=== PATIENT | male | born 1980 | race Caucasian/White ===

== ENCOUNTER 2023-10-17 17:44 | Inpatient (IN) | payer BC, SELFPAY ==
[2023-10-17 13:37] VITALS: BP 174/99
[2023-10-17 14:32] LABS: % Basophils 0.4 % (0-2); % Eosinophils 0.6 % (0-6); % Immature Granulocytes 0.5 % (0-0.5); % Monocytes 6.7 % (1.7-9.3); % Neutrophils 78.8 % (42.2-75.2); Absolute Basophils 0.1 10^3/uL (0-0.2); Absolute Eosinophils 0.1 10^3/uL (0-0.7); Absolute Immature Granulocytes 0.1 10^3/uL (0-0.05); Absolute Lymphocytes 2.2 10^3/uL (1.2-3.4); Absolute Monocytes 1.1 10^3/uL (0.1-0.6); Absolute Neutrophils 13.4 10^3/uL (1.4-6.5); Hematocrit 41.2 % (39.0-52.0); Hemoglobin 14.2 g/dL (13.0-18.0); Mean Corp Hgb Conc. 34.5 g/dL (33.0-37.0); Mean Corpuscular Hgb 29.3 pg (27.0-31.0); Mean Corpuscular Volume 84.9 fL (80.0-94.0); Nucleated Red Blood Cells % 0 % (-); Platelet Count 360 10^3/uL (130-400); Red Blood Cell Count 4.85 10^6/uL (4.70-6.10); Red Cell Dist. Width 13.5 % (11.5-14.5); White Blood Cell Count 16.9 10^3/uL (4.8-10.8)
[2023-10-17 14:46] LABS: ALT (SGPT) 23 U/L (0-50); AST (SGOT) 22 U/L (17-59); Albumin 4.6 g/dl (3.5-5.0); Alkaline Phosphatase 77 U/L (38-126); Blood Urea Nitrogen 14 mg/dl (9-20); Calcium 9.3 mg/dl (8.4-10.2); Carbon Dioxide 23 mmol/L (22-30); Chloride 104 mmol/L (98-107); Glucose 98 mg/dl (70-99); Potassium 3.8 mmol/L (3.5-5.1); Sodium 135 mmol/L (135-145); Total Bilirubin 0.8 mg/dl (0.2-1.3); Total Protein 7.2 g/dl (6.3-8.2); eGFR > 60.00
--- NOTE | 2023-10-17 15:20 | ED.GENMED ---
History of Present Illness
<Melodie Rice MD - Last Filed: 10/17/23 15:32>
General
Chief Complaint: Abdominal Pain
Time Seen by Provider: 10/17/23 13:50
Travel History
Have you had any contact with someone who has COVID-19?: No
Do you have any symptoms of coronavirus? Fever > 100 degrees, chills, cough, shortness of breath, sore throat, loss of taste or smell, muscle aches, or headache?: No
<Elian Potter PA-C - Last Filed: 10/17/23 16:44>
History of Present Illness
History of Present Illness:
43-year-old male with history of hypertension and obesity presents emergency department for evaluation of suprapubic pain over the past several days. He also notes abnormal bowel movements from the color and caliber standpoint. Denies any
associated fevers or chills. Over the past several days has had generally poor appetite. No history abdominal surgeries. Has neglected to have this evaluated earlier today without lesion. Seeing a neurosurgical specialist.. He has no history of
intra-abdominal problems such as diverticulitis.
Past History
<Melodie Rice MD - Last Filed: 10/17/23 15:32>
Past History
ED Past Medical History: COPD, HTN and Other (morbid obesity)
ED Past Surgical History: Orthopedic and Urological
Social History
Tobacco: Smoker
<Elian Potter PA-C - Last Filed: 10/17/23 16:44>
Review of Systems
Allergies reviewed?: Yes
All Other Systems: ROS reviewed and negative except as documented in HPI and ROS
<Elian Potter PA-C - Last Filed: 10/17/23 16:44>
Physical Exam
Physical Exam:
GEN: Well appearing, NAD, WDWN
HEENT: Oral mucosa moist, no scleral icterus
Cardiac: Mildly tachycardic, regular
Lung: No respiratory distress, no tachypnea
Abdomen: Obesity limits exam, no rigidity, tenderness in suprapubic region, no peritoneal signs
MSK: No gross deformity or injuries
Skin: Good color, no pallor or jaundice, no rashes
Neuro: AO x3, moves all extremities freely
Psych: Calm, cooperative
Course
<Melodie Rice MD - Last Filed: 10/17/23 15:32>
Orders/Labs/Results
Orders:
Orders
10/17/23 14:06
CT Abd/Pel (IV only)-[facility] only Urgent
Comment:
Reason For Exam: suprapubic pain
10/17/23 14:11
Complete Blood Count/With Diff Urgent
Comprehensive Metabolic Panel Urgent
10/17/23 16:21
Zosyn 3.375 grams IVPB NOW Piperacillin/Tazo 3.375 Gram [Zosyn] 3.375 gram in 50 ml IV NOW
10/17/23 16:22
Lactated Ringers [Lr] 1,000 ml IV 250 mls/hr
Abnormal Lab Results
10/17/23
14:11
WBC 16.9 H 10^3/uL
(4.8-10.8)
Abs Immat Gran (auto) 0.1 H 10^3/uL
(0-0.05)
Absolute Neuts (auto) 13.4 H 10^3/uL
(1.4-6.5)
Absolute Monos (auto) 1.1 H 10^3/uL
(0.1-0.6)
Neutrophils % 78.8 H %
(42.2-75.2)
Lymphocytes % 13.0 L %
(20.5-51.1)
10/17/23 14:11
10/17/23 14:11
Vital Signs
Initial and Last Documented VS:
Initial Vital Signs
Temp Pulse Resp BP Pulse Ox
98.5 F 102 16 174/99 97
10/17/23 13:37 10/17/23 13:37 10/17/23 13:37 10/17/23 13:37 10/17/23 13:37
Last Documented Vital Signs
Temp Pulse Resp BP Pulse Ox
98.5 F 92 16 146/92 99
10/17/23 13:37 10/17/23 15:52 10/17/23 15:52 10/17/23 15:52 10/17/23 15:52
<Elian Potter PA-C - Last Filed: 10/17/23 16:44>
Orders/Labs/Results
Orders:
Orders
10/17/23 14:06
CT Abd/Pel (IV only)-[facility] only Urgent
Comment:
Reason For Exam: suprapubic pain
10/17/23 14:11
Complete Blood Count/With Diff Urgent
Comprehensive Metabolic Panel Urgent
10/17/23 16:21
Zosyn 3.375 grams IVPB NOW Piperacillin/Tazo 3.375 Gram [Zosyn] 3.375 gram in 50 ml IV NOW
10/17/23 16:22
Lactated Ringers [Lr] 1,000 ml IV 250 mls/hr
Abnormal Lab Results
10/17/23
14:11
WBC 16.9 H 10^3/uL
(4.8-10.8)
Abs Immat Gran (auto) 0.1 H 10^3/uL
(0-0.05)
Absolute Neuts (auto) 13.4 H 10^3/uL
(1.4-6.5)
Absolute Monos (auto) 1.1 H 10^3/uL
(0.1-0.6)
Neutrophils % 78.8 H %
(42.2-75.2)
Lymphocytes % 13.0 L %
(20.5-51.1)
10/17/23 14:11
10/17/23 14:11
Vital Signs
Initial and Last Documented VS:
Initial Vital Signs
Temp Pulse Resp BP Pulse Ox
98.5 F 102 16 174/99 97
10/17/23 13:37 10/17/23 13:37 10/17/23 13:37 10/17/23 13:37 10/17/23 13:37
Last Documented Vital Signs
Temp Pulse Resp BP Pulse Ox
98.5 F 92 16 146/92 99
10/17/23 13:37 10/17/23 15:52 10/17/23 15:52 10/17/23 15:52 10/17/23 15:52
<Elian Potter PA-C - Last Filed: 10/17/23 16:44>
MDM/Problems Addressed
MDM/Problems Addressed:
CT shows diverticulitis with early abscess development in the sigmoid. Will admit the patient for IV antibiotics
<Elian Potter PA-C - Last Filed: 10/17/23 16:44>
*Critical Care Note
Total Time (30-74mins, 75-104mins- exclusive of procedures): Not Applicable
ED Attending Note
<Melodie Rice MD - Last Filed: 10/17/23 15:32>
ED Attending Note
Patient seen and examined by attending physician: Yes
I performed the substantive portion of visit, reviewed & personally made and approve the management plan that is documented in note by myself or ELIAS.: Yes
ED Attending Note:
43 yr old male with c/o abd pain for at least a week, comes and goes, progressively worse especially today, localized to mid abd/llq area. No n/v/f/c/cp/sob. Notes stoolslook different in shape and also yellowish, no black stool or blood. On exam,
pt awake well appearing in nad. Abd soft, distinct ttp at llq and suprapubic area, no r/g. Suspect diverticulitis vs hernia vs appy etc. CT pending.
-
Portions of this chart may have been created with voice recognition software.� Occasional wrong word or��sound alike� substitutions may have occurred due to the inherent limitations of voice recognition software.
Discharge Plan
Departure
Patient Disposition: Admit
Date of Disposition: 10/17/23
Time of Disposition: 16:41
Admit to: Med/Surg
Presentation/result/management discussed w/ accepting MD/DO: Hospitalist
Discharge Problem:
Diverticulitis of intestine with abscess
Prescriptions:
No Action
prednisone 10 mg Tablet
See Rx Instructions .ROUTE .COMPLEX Qty: 30 0RF
Rx Instructions:
Take By Mouth:
40 mg daily x3 days, 30 mg daily x3 days,
20 mg daily x3 days, 10 mg daily x3 days.
ipratropium-albuterol 0.5 mg-3 mg(2.5 mg base)/3 mL solution for nebulization
3 ml inhalation QID Qty: 180 0RF
Referrals:
Rigo Cid DO [Family Provider] -
Interventions
Interventions:
*Risk Screen - Suicide Last Done: 10/17/23 14:05
*General Assessment Last Done: 10/17/23 13:37
*Neglect/Abuse Screening Last Done: 10/17/23 14:05
*ED COVID-19 Vaccine History Last Done: 10/17/23 13:37
FD-Zsxaar-Wkkfeyzzbv Assessment Last Done: 10/17/23 14:05
[2023-10-17 15:52] VITALS: BP 146/92
[2023-10-17] MEDS: LR 1000 IV (16:53)
[2023-10-17] MEDS: ZOSYN 50 IV ×2 (17:02→23:32)
--- NOTE | 2023-10-17 17:35 | HPS.HSE ---
Addendum entered and electronically signed by Dhaval Marie DO 10/17/23 17:53:
Patient seen and examined and discussed with LUZ Clark, and I agree with her note.,
Gen-AAOx3, NAD, morbid obesity
HEENT-NC, AT, anicteric, clear oral mm
Neck-supple
CV-reg, no M, +S1/S2
Lungs-clear B/L
Abd-soft, NT, ND
Ext-no edema
Musculoskeletal-no cyanosis, clubbing
Skin-warm and dry
Neuro-grossly non-focal
Psych-calm, cooperative
Sepsis due to acute sigmoid diverticulitis -CT notes early abscess formation. Leukocytosis and tachycardia noted. Clinically looks nontoxic. Admit to MedSurg, continue IV fluids and IV antibiotics. Consult colorectal surgery. NPO. Analgesics.
Discussed importance of lifestyle changes including weight loss, diet, exercise, etc. Close outpatient follow-up.
Incidental left adrenal mass -2.[address] scan. Likely adrenal adenoma. No signs or symptoms of hyperfunctioning. Will refer to endocrinology after discharge.
History of colon polyp/anal fissure -had colonoscopy about 12 years ago. Reportedly benign polyp.
Essential hypertension -he is on hydrochlorothiazide and losartan as an outpatient. Will resume.
Morbid obesity due to excess calories
Full code
Original Note:
Family Physician
-
Family Physician: Rigo Cid
Chief Complaint
-
Abdominal Pain
History of Present Illness
Patient is a 43 year old male with PMH of hypertension and obesity who presented to the ED complaining of abdominal pain and loose stool x 7 days. Patient says he has had mrxl-bt-ydakw stool that appears brown/yellow in color. He has also noticed
mucus in the toilet after bowel movements. He says his bowel habits are very regular at baseline. Patient admits to mild abdominal pain for 6 days but has become much worse over the past 24 hours. He admits to episodes of more mild but similar
abdominal pain in the past. He had a colonoscopy at age 31 for rectal bleeding which revealed a fissure and benign polyp. He denies fever, chills, sweats, and bloody or dark stool. He denies prior diverticulitis diagnosis.
Medical History
Past Medical History
Past Medical History: Reports Other
Additional Past Medical History:
Essential Hypertension
Past Surgical History: Reports Other
Additional Past Surgical History:
Left Rotator Cuff
Social History
Tobacco: Smoker (07/29 ppd)
Personal:
Living: With Family
Family History
Family History: Not pertinent
Allergies / Home Medications
Allergies reflects when Allergies were last updated in [facility] (formerly known as [facility]).
Home Medications with original date entered in [facility] (formerly known [facility])
Allergy/Medication List:
Allergies
Allergy/AdvReac Type Severity Reaction Status Date / Time
No Known Allergies Allergy Verified 10/17/23 13:40
Home Medications
ascorbic acid (vitamin C) 500 mg tablet (Vitamin C) 1,000 mg PO DAILY 10/17/23
hydrochlorothiazide 25 mg tablet 25 mg PO DAILY 10/17/23
lactobacillus combination no.4 3 billion cell capsule (Probiotic) 3,000 mmu cells PO DAILY 10/17/23
losartan 50 mg tablet 100 mg PO DAILY 10/17/23
multivitamin 1 tab PO DAILY 10/17/23
Review of Systems
-
A 12 point ROS was completed and negative except as noted: Yes
Constitutional: Denies Fever or Chills
Respiratory: Denies Cough or Trouble Breathing
Cardiac: Denies Chest Pain or Palpitations
Abdomen/GI: Reports See HPI
Physical Exam
Vital Signs
Vital Signs
Temp Pulse Resp BP Pulse Ox
98.5 F 92 16 146/92 99
10/17/23 13:37 10/17/23 15:52 10/17/23 15:52 10/17/23 15:52 10/17/23 15:52
Physical Exam
General: Comfortable and Conversant
HEENT: Anicteric and Moist mucous membranes
Respiratory: Clear and Non Labored Respirations
Cardiac: S1/S2 and Regular Rhythm
GI: Soft, Normal Bowel Sounds, Tender (LLQ with slight involuntary guarding) and Other (Protuberant)
Rectal: Deferred by Provider
Musculoskeletal: No Clubbing, No Cyanosis and No Edema
Skin: Warm and Dry
Neuro: Awake, Alert, Oriented and Nonfocal/grossly intact
Psych: Calm
Laboratory Results
-
10/17/23 14:11
10/17/23 14:11
Laboratory Results
Total Bilirubin 0.8 mg/dl (0.2-1.3) 10/17/23 14:11
AST 22 U/L (17-59) 10/17/23 14:11
ALT 23 U/L (0-50) 10/17/23 14:11
Alkaline Phosphatase 77 U/L (38-126) 10/17/23 14:11
Data Reviewed
-
CT Scan: Report Reviewed by me
Lab Data: Labs Reviewed by me
Impression/Plan
-
Acute Diverticulitis with Phlegmon
-Consult Colorectal Surgery
-Continue Zosyn
-Continue NPO/IVFs
2.6cm Left Adrenal Mass
-Patient will need follow-up with Endocrine as outpatient
Essential Hypertension
-Hold HCTZ
-Continue losartan
Tobacco Use Disorder
-Encourage smoking cessation
-Offered nicotine patch which patient declined
DVT proph: Lovenox
Code Status: Full Code
[2023-10-17 18:32] VITALS: BP 147/87
[2023-10-17 18:35] VITALS: BMI 45.6
[2023-10-17 18:58] VITALS: BP 165/96
[2023-10-17] MEDS: D5/0.45%NSS with KCL 10 MEQ 1000 IV (20:37)
[2023-10-17] MEDS: ZOFRAN 4 MG IV (23:31)
[2023-10-17 23:52] VITALS: BP 118/56
[2023-10-18] MEDS: ZOSYN 50 IV ×4 (05:37→23:44)
[2023-10-18] MEDS: D5/0.45%NSS with KCL 10 MEQ 1000 IV ×2 (05:41→18:30)
[2023-10-18 06:29] LABS: Hematocrit 41.4 % (39.0-52.0); Hemoglobin 13.7 g/dL (13.0-18.0); Mean Corp Hgb Conc. 33.1 g/dL (33.0-37.0); Mean Corpuscular Hgb 29.3 pg (27.0-31.0); Mean Corpuscular Volume 88.5 fL (80.0-94.0); Mean Platelet Volume 10.2 fL (7.4-10.4); Platelet Count 339 10^3/uL (130-400); Red Blood Cell Count 4.68 10^6/uL (4.70-6.10); Red Cell Dist. Width 13.6 % (11.5-14.5); White Blood Cell Count 13.6 10^3/uL (4.8-10.8)
[2023-10-18 06:54] LABS: Blood Urea Nitrogen 12 mg/dl (9-20); Calcium 8.8 mg/dl (8.4-10.2); Carbon Dioxide 25 mmol/L (22-30); Chloride 106 mmol/L (98-107); Estimated Creatinine Clearance > 125 ml/min; Glucose 127 mg/dl (70-99); Magnesium 2.1 mg/dl (1.6-2.3); Potassium 4.2 mmol/L (3.5-5.1); Sodium 135 mmol/L (135-145); eGFR > 60.00
[2023-10-18 07:35] VITALS: BP 140/86
[2023-10-18] MEDS: COZAAR 100 MG PO (08:32)
--- NOTE | 2023-10-18 10:12 | W.PN.HOSP.TC ---
Addendum entered and electronically signed by Sav Colon MD 10/19/23 11:13:
My addendum below is entered in error to the wrong note.
Addendum entered and electronically signed by Sav Colon MD 10/18/23 16:45:
I saw and examined the patient.
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
Comment:
I personally reviewed his medical record and imaging studies.� He is admitted with his first episode of sigmoid diverticulitis; the inflammation is associated with a 4.7 cm pericolic abscess that is not amenable to percutaneous drainage due to its
central location.� There is no free air or obstruction.� There is an incidental 2.6 cm left adrenal gland mass.� He is afebrile with normal vital signs and is in no acute distress.� His abdomen is minimally tender in the suprapubic region.� His
white count was 16.9 yesterday and 13.6 today.
I reviewed the current findings with the patient and his and discussed the treatment options with the risks and benefits of each.� Surgery at this time would most likely involve a temporary colostomy.� I do not feel there is an indication for
surgery at this moment and they are in agreement with a trial of nonoperative treatment.� Continue antibiotics and he is okay for clear liquids.� Will monitor his vital signs, white count and physical findings and as long as he continues to improve,
he can be transitioned to oral antibiotics and discharged home hopefully in a couple days. �If his condition worsens, I will consider another CT scan and possible surgery.� Assuming he does improve, an outpatient CT scan will be obtained as well as
a colonoscopy.� We also discussed the possibility of an elective resection in the future. All questions answered.
Original Note:
Today's Communication/Plan
-
Continue antibiotics
Continue IV fluids
Colorectal consult
Assessment / Plan
Assessment / Plan
Gen-AAOx3, NAD, morbid obesity
HEENT-NC, AT, anicteric, clear oral mm
Neck-supple
CV-reg, no M, +S1/S2
Lungs-clear B/L
Abd-soft, nondistended, mild left lower quadrant tenderness
Ext-no edema
Musculoskeletal-no cyanosis, clubbing
Skin-warm and dry
Neuro-grossly non-focal
Psych-calm, cooperative
Sepsis due to acute sigmoid diverticulitis -CT notes early abscess formation.� Leukocytosis improving. Afebrile. Continue IV antibiotics. Awaiting colorectal surgery input. Currently NPO.
Discussed importance of lifestyle changes including weight loss, diet, exercise, etc.� Close outpatient follow-up.
Incidental left adrenal mass -2.[address] scan.� Likely adrenal adenoma.� No signs or symptoms of hyperfunctioning.� Will refer to endocrinology after discharge. Extensively discussed with patient and at the bedside.
History of colon polyp/anal fissure -had colonoscopy about 12 years ago.� Reportedly benign polyp.
Essential hypertension -he is on hydrochlorothiazide and losartan as an outpatient.� Will resume.
Morbid obesity due to excess calories
Full code
Anticipated Discharge: 24 - 48 hours
Subjective/Interval History
-
Date of Service: October 18, 2023
Patient seen and examined. Feeling better. Denies significant pain. at the bedside.
Objective Data
-
Labs:
Laboratory Results
10/18/23
05:43
WBC 13.6 H
Hgb 13.7
Hct 41.4
Plt Count 339
Sodium 135
Potassium 4.2
Chloride 106
Carbon Dioxide 25
BUN 12
Creatinine 0.7
Glucose 127 H
Calcium 8.8
Vital Signs:
Vital Signs
Temp Pulse Resp BP Pulse Ox
97.9 F 73 18 140/86 98
10/18/23 07:35 10/18/23 07:35 10/18/23 07:35 10/18/23 07:35 10/18/23 07:35
Review of Systems
-
History Source: Patient
All other systems: Reviewed and negative
[2023-10-18] MEDS: FLUSH (NSS) 2 FLUSH IV (11:59)
--- NOTE | 2023-10-18 13:14 | CON.CRS ---
Consultation
-
Date/Time Consultation Requested: 10/18/231835
Requesting Provider: Manuel
Performing Provider: Reuben Colon
Medical History
-
Chief Complaint: Abdominal pain
History of Present Illness:
This is a 43 yo male with a h/o HTN who had a colonoscopy about 12 years ago at [facility] for blood noted in stools with polyp and anal fissure noted at that time who presents for lower suprapubic abdominal pain for the past 7-8 stool with looser
stools and poor appetite. He has had some intermittent nausea but currently denies nausea. He denies fevers or chills. On exam, he has minimal suprapubic tenderness without rebound or guarding.
Past Medical History
Past Medical History: HTN
Past Surgical History: Orthopedic (left rotator cuff)
Social History
Tobacco: Smoker (/2 ppd)
Personal:
Living: With Family
Family History
Family History: Reviewed & Not Pertinent
Allergies / Home Medications
Allergy/AdvReac Type Severity Reaction Status Date / Time
No Known Allergies Allergy Verified 10/17/23 13:40
Medication Instructions Recorded Confirmed Type
ascorbic acid (vitamin C) 500 mg 1,000 mg PO DAILY Supplement 10/17/23 10/17/23 History
tablet (Vitamin C)
hydrochlorothiazide 25 mg tablet 25 mg PO DAILY Fluid 10/17/23 10/17/23 History
Retention/Swelling
lactobacillus combination no.4 3 3,000 mmu cells PO DAILY Supplement 10/17/23 10/17/23 History
billion cell capsule (Probiotic)
losartan 50 mg tablet 100 mg PO DAILY Blood Pressure 10/17/23 10/17/23 History
multivitamin 1 tab PO DAILY Supplement 10/17/23 10/17/23 History
Review of Systems
-
History Source: Patient and Family
All other systems: Negative unless noted
A 10 point review of systems was completed, and was negative except as per HPI.
Physical Exam
Vital Signs
Temp 97.9 F 10/18/23 07:35
Pulse 73 10/18/23 07:35
Resp Rate 18 10/18/23 07:35
Blood pressure 140/86 10/18/23 07:35
SaO2 98 10/18/23 07:35
10/17/23 10/18/23 10/19/23
06:59 06:59 06:59
Actual Weight 135.896 kg
Body Mass Index (BMI) 45.6
Lab Results / Allergies
10/18/23 05:43
10/18/23 05:43
WBC 13.6 10^3/uL (4.8-10.8) H 10/18/23 05:43
Hgb 13.7 g/dL (13.0-18.0) 10/18/23 05:43
Hct 41.4 % (39.0-52.0) 10/18/23 05:43
Plt Count 339 10^3/uL (130-400) 10/18/23 05:43
Abs Immat Gran (auto) 0.1 10^3/uL (0-0.05) H 10/17/23 14:11
Neutrophils % 78.8 % (42.2-75.2) H 10/17/23 14:11
Allergy/AdvReac Type Severity Reaction Status Date / Time
No Known Allergies Allergy Verified 10/17/23 13:40
Physical Exam
General: Well Developed, Well Nourished and No Apparent Distress
HEENT: Moist Mucous Membranes
Respiratory: Non Labored Respirations
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
Skin: Warm
Neuro: Awake, Alert and AO x 3
Psych: Calm
Data Reviewed
-
CT Scan: Image Personally Visualized and interpreted, Report Reviewed by me, Discussed with Physician, Discussed with Patient and Discussed with Family
Labs: Labs Reviewed by me, Discussed with Physician, Discussed with Patient and Discussed with Family
Assessment / Plan
-
43 yo male with h/o HTN presenting with 7-8 days of lower abdominal pain. CT imaging reviewed and consistent with complicated sigmoid diverticulitis with developing pelvic abscess near the bladder (4.7 cm x 3.2 cm x 2.9 cm). Leukocytosis present on
admission but trending down. AFVSS. Minimal pain. Poor appetite but without n/v.
Incidental finding of left adrenal mass, would recommend OP work up which was discussed with patient.
Discussed case with IR, Dr. Vázquez, abscess not amenable to IR drainage given location. Patient stable and improving on ABX. No plan for emergent surgery today. Will follow labs/exams closely on IV abx.
--Continue IV abx
--Follow labs/exams
--Clear liquid diet
--Analgesics/Antiemetics prn
--Medical care as per primary team
--- NOTE | 2023-10-18 13:45 | CM ---
Patient seen bedside with Victorina, initial assessment completed. Patient reports he resides with his and seven children in a four story home, two steps to enter. Patient denies DME, VN, or SNF. Patient confirms PCP Dr. Rigo Cid but
is looking into switching PCP's. Patient confirms pharmacy used is [facility]. CM will continue to follow for discharge planning needs.
Plan; home no needs anticipated.
[2023-10-18 15:35] VITALS: BP 150/87
[2023-10-18 23:08] VITALS: BP 123/62
[2023-10-19] MEDS: D5/0.45%NSS with KCL 10 MEQ IV (02:49)
[2023-10-19] MEDS: ZOSYN 50 IV (05:34)
[2023-10-19 07:10] VITALS: BP 134/84
[2023-10-19 07:52] LABS: % Basophils 0.6 % (0-2); % Eosinophils 1.4 % (0-6); % Immature Granulocytes 0.3 % (0-0.5); % Lymphocytes 18.3 % (20.5-51.1); % Monocytes 5.9 % (1.7-9.3); % Neutrophils 73.5 % (42.2-75.2); Absolute Basophils 0.1 10^3/uL (0-0.2); Absolute Eosinophils 0.2 10^3/uL (0-0.7); Absolute Lymphocytes 2.1 10^3/uL (1.2-3.4); Absolute Monocytes 0.7 10^3/uL (0.1-0.6); Absolute Neutrophils 8.5 10^3/uL (1.4-6.5); Hematocrit 42.3 % (39.0-52.0); Hemoglobin 13.6 g/dL (13.0-18.0); Mean Corp Hgb Conc. 32.2 g/dL (33.0-37.0); Mean Corpuscular Hgb 28.5 pg (27.0-31.0); Mean Corpuscular Volume 88.5 fL (80.0-94.0); Mean Platelet Volume 10.1 fL (7.4-10.4); Nucleated Red Blood Cells % 0 % (-); Platelet Count 361 10^3/uL (130-400); Red Blood Cell Count 4.78 10^6/uL (4.70-6.10); Red Cell Dist. Width 13.4 % (11.5-14.5); White Blood Cell Count 11.6 10^3/uL (4.8-10.8)
[2023-10-19] MEDS: COZAAR 100 MG PO (08:17)
--- NOTE | 2023-10-19 09:12 | W.PN.HOSP.TC ---
Today's Communication/Plan
-
Advance diet
Possible discharge
Assessment / Plan
Assessment / Plan
Gen-AAOx3, NAD, morbid obesity
HEENT-NC, AT, anicteric, clear oral mm
Neck-supple
CV-reg, no M, +S1/S2
Lungs-clear B/L
Abd-soft, nondistended, mild left lower quadrant tenderness
Ext-no edema
Musculoskeletal-no cyanosis, clubbing
Skin-warm and dry
Neuro-grossly non-focal
Psych-calm, cooperative
Sepsis due to acute sigmoid diverticulitis -CT notes early abscess formation.� Leukocytosis improving. Afebrile. Continue antibiotics. Advance diet to low residue. Can discharge later today if okay with surgery.
Discussed importance of lifestyle changes including weight loss, diet, exercise, etc.� Close outpatient follow-up.
Incidental left adrenal mass -2.[address] scan.� Likely adrenal adenoma.� No signs or symptoms of hyperfunctioning.� Will refer to endocrinology after discharge. Extensively discussed with patient and at the bedside.
History of colon polyp/anal fissure -had colonoscopy about 12 years ago.� Reportedly benign polyp.
Essential hypertension -he is on hydrochlorothiazide and losartan as an outpatient.� Will resume.
Morbid obesity due to excess calories -weight loss encouraged.
Full code
Dispo - can discharge later today if tolerating diet and okay with surgery. Outpatient follow-up.
32 minutes spent in discharge process.
Anticipated Discharge: Today
Subjective/Interval History
-
Date of Service: October 19, 2023
Patient seen and examined. at the bedside. He is eager to go home today. Denies any abdominal pain.
Objective Data
-
Labs:
Laboratory Results
10/19/23
06:43
WBC 11.6 H
Hgb 13.6
Hct 42.3
Plt Count 361
Vital Signs:
Vital Signs
Temp Pulse Resp BP Pulse Ox
98 F 72 18 134/84 99
10/19/23 07:10 10/19/23 07:10 10/19/23 07:10 10/19/23 07:10 10/19/23 08:10
I&O
10/18/23 10/19/23 10/20/23
06:59 06:59 06:59
Intake Total 1809
Balance 1809
Review of Systems
-
History Source: Patient
All other systems: Reviewed and negative
--- NOTE | 2023-10-19 09:23 | W.DS.TRANS ---
DC Summary - Dope Sprayer
-
Discharge Instructions:
Discharge Diagnosis/Procedures Acute sigmoid diverticulitis, left adrenal
adenoma
Diet Low Residue
Additional Diets Low residue diet for the next 5 to 7 days then
high-fiber diet
Activity As tolerated
Driving Restrictions As prior to admission
Bathing Restrictions None
Others Tests See Dr. Colon in 2-3 weeks in the office. At
that appointment, he will order a CT A/P to be
done after the appointment and schedule you for
a colonoscopy in the future.
Instructions: Low Fiber Diet
Stand-Alone Forms:
Changes to Home Medications: No
Discharge Medications:
DC Medications w/original date entered in [employer]
ascorbic acid (vitamin C) 500 mg tablet (Vitamin C) 1,000 mg PO DAILY Supplement 10/17/23
hydrochlorothiazide 25 mg tablet 25 mg PO DAILY Fluid Retention/Swelling 10/17/23
lactobacillus combination no.4 3 billion cell capsule (Probiotic) 3,000 mmu cells PO DAILY Supplement 10/17/23
losartan 50 mg tablet 100 mg PO DAILY Blood Pressure 10/17/23
multivitamin 1 tab PO DAILY Supplement 10/17/23
amoxicillin 875 mg-potassium clavulanate 125 mg tablet 1 tab PO BID #18 tabs 10/19/23
Home Medication Changes
Pending Results: No
--- NOTE | 2023-10-19 10:56 | CM ---
CM reviewed chart, patient seen with , plan home no needs. CM will continue to follow for discharge planning needs.
Plan; home no needs.
--- NOTE | 2023-10-19 12:14 | W.PN.CRS1 ---
Today's Communication / Plan
-
okay for d/c on low residue diet and abx
follow up in office as an outpatient
Assessment/Plan
-
43 yo male with h/o HTN presenting with 7-8 days of lower abdominal pain. CT imaging reviewed and consistent with complicated sigmoid diverticulitis with developing pelvic abscess near the bladder (4.7 cm x 3.2 cm x 2.9 cm).
Incidental finding of left adrenal mass, would recommend OP work up which was discussed with patient.
--Continue IV abx, convert to po as an outpatient (Augmentin)
--Follow labs/exams
--Advance to low residue diet
--Analgesics/Antiemetics prn
--Patient is requesting to be discharged, okay from our perspective. Needs to remain on low residue. Follow up with Dr. Colon as an outpatient in [address] will be ordered at office appointment. Needs eventual colonoscopy.
Subjective Data
Subjective Data
Date of Service: October 19, 2023
Patient states he feels well. He is having bowel movements. He is not tender. He denies nausea or vomiting. He is tolerating clears.
Objective Data
-
Vital Signs
Temp Pulse Resp BP Pulse Ox
98 F 72 18 134/84 99
10/19/23 07:10 10/19/23 07:10 10/19/23 07:10 10/19/23 07:10 10/19/23 08:10
Intake & Output
10/18/23 10/19/23 10/20/23
06:59 06:59 06:59
Intake Total 1809
Balance 1809 / 1809
Intake:
Oral fluids 1560 / 1560
IV fluids (Total) 200 / 200
IV piggybacks 50 / 50
Other:
Number of approximated MODERATE 1 3
amounts of urine
Lab Results
10/19/23 06:43
10/18/23 05:43
Physical Exam
-
General: No Acute Distress and AOx3
Abdomen: Soft, Non Distended and Non Tender
Skin: Warm and Dry
== END 2023-10-19 10:43 | disposition home or self-care (01) | DRG 871 ==
LOC: 4 EAST ACU 17:44
PROVIDERS: Physician Assistant; Physician Assistant Medical; ADMITTING PHYSICIAN Hospitalist; CONSULT PHYSICIAN Surgery; EMERGENCY PHYSICIAN Emergency Medicine; FAMILY PHYSICIAN Internal Medicine
DX: A41.9 Sepsis, unspecified organism (principal); K65.1 Peritoneal abscess; K57.20 Diverticulitis of large intestine with perforation and abscess without bleeding; Z68.42 Body mass index [BMI] 45.0-49.9, adult; I10 Essential (primary) hypertension; E66.01 Morbid (severe) obesity due to excess calories; J44.9 Chronic obstructive pulmonary disease, unspecified; F17.210 Nicotine dependence, cigarettes, uncomplicated; D35.02 Benign neoplasm of left adrenal gland; R10.2 Pelvic and perineal pain; Z79.52 Long term (current) use of systemic steroids; Z87.19 Personal history of other diseases of the digestive system
CPT/HCPCS: 74177; 80048; 80053; 83735; 85025; 85027; 96361; 96365; 99285; 99406; J3480; Q9967

== ENCOUNTER → 2023-12-12 07:14 | Outpatient (REF) | payer BC, SELFPAY | LOC: RAD 07:14 | PROVIDERS: ATTENDING PHYSICIAN Surgery; FAMILY PHYSICIAN Internal Medicine | DX: K57.20 Diverticulitis of large intestine with perforation and abscess without bleeding (principal) | CPT/HCPCS: 74177; Q9967 ==